=== PATIENT | female | born 1975 | race African-American/Black ===

== ENCOUNTER 2017-06-17 05:01 | Emergency (ER) | payer OTHER ==
[2017-06-17] MEDS ORDERED: METOPROLOL TARTRATE 5 MG/5 ML VIAL IVPUSH ONE (06:01)
[2017-06-17] MEDS ORDERED: ASPIRIN 81 MG CHEWABLE TABLETS PO ONE (06:01)
[2017-06-17 08:53] LABS: GLUCOSE,RANDOM 90 mg/dL (74-106)
[2017-06-17 08:54] LABS: ALBUMIN 3.6 g/dl (3.4-5.0); ANION GAP 7 (8-16); BILIRUBIN,TOTAL 0.4 mg/dL (0.2-1.0); CO2 25 mmol/L (21-32); CREATININE 0.7 mg/dL (0.55-1.02); MCH 28.4 pg (25.7-33.7); MCHC 32.1 g/dl (32.0-36.0); MEAN CELL VOLUME 88.5 fl (80-96); PLATELET COUNT 234 K/MM3 (134-434); RDW 15.1 % (11.6-15.6); TOT PROT 6.8 g/dl (6.4-8.2)
[2017-06-17 08:55] LABS: ALK PHOS 73 U/L (45-117); SGOT/AST 11 U/L (15-37); SGPT/ALT 30 U/L (12-78)
[2017-06-17 09:22] LABS: INR 1.07 (0.82-1.09); PROTHROMBIN TIME (PATIENT) 11.8 SEC (9.98-11.88)
[2017-06-17 09:25] LABS: ACTIVATED PTT 29.9 SECONDS (26.9-34.4)
--- NOTE | 2017-06-17 12:17 | PDOC ---
*Physical Exam - Physical Exam General Appearance: Yes: Nourished Neck: positive: Trachea midline Respiratory/Chest: positive: Lungs Clear, Normal Breath Sounds. negative: Chest Tender Cardiovascular: positive: Regular Rhythm, Regular Rate, S1, S2 Gastrointestinal/Abdominal: positive: Normal Bowel Sounds, Flat. negative: Tender Integumentary: positive: Normal Color, Dry, Warm ED Treatment Course - LABORATORY CBC & Chemistry Diagram: 06/17/17 05:57 06/17/17 05:57 - ADDITIONAL ORDERS Additional order review: Laboratory Results 06/17/17 06/17/17 06/17/17 06:30 05:57 05:57 INR 1.07 PTT (Actin FS) 29.9 Sodium 140 Potassium 4.0 Chloride 108 H Carbon Dioxide 25 Anion Gap 7 L BUN 10 D Creatinine 0.7 Creat Clearance w eGFR > 60 Random Glucose 90 Calcium 9.0 Total Bilirubin 0.4 D AST 11 L D ALT 30 D Alkaline Phosphatase 73 Total Protein 6.8 Albumin 3.6 Serum , Qual Negative 06/17/17 05:57 RBC 4.88 MCV 88.5 MCHC 32.1 RDW 15.1 D MPV 8.0 - Medications Given in the ED: ED Medications Discontinued Medications Generic Name Dose Route Start Last Admin Trade Name Freq PRN Reason Stop Dose Admin Aspirin 81 mg 06/17/17 06:01 06/17/17 10:02 Asa - PO 06/17/17 06:02 Not Given ONCE ONE Metoprolol Tartrate 5 mg 06/17/17 06:01 06/17/17 10:02 Lopressor Injection - IVPUSH 06/17/17 06:02 Not Given ONCE ONE Medical Decision Making - Medical Decision Making 06/17/17 12:14 assumed care of pt at 7 am. initially seen by dr lua during down time. ( paper chart) pt with h/o HTN here wtih /co chest pain awoke her from her sleep. pt states under significant amount of stress today states her birthday was 2 days ago and her son has been incarcerated for several days and she is worried about him. has had similar episode of cp in the past, no sob not pleuritic. since resolved. no n/v no sob no diaphoresis. has had a stress test over 2 yrs ago which was normal. was seeing a junction maker dr Deutsch, and pcp dr fabian Nuñez, but hasnt seen in a while. no h/o pe or dvt. no calf pain or tendernss. on exam awake alert lungs clear heart rrr no mrg. abd soft Nt nd ext wwp no edema no calf tenderness. plan: awaiting second troponin. will call pcp dr. fabian Nuñez, and pt should followup with cardiology for repeat outpt stress . given numbner for dr. peres. 06/17/17 13:19 rpt troponin negative 06/17/17 13:22 06/17/17 13:22 *DC/Admit/Observation/Transfer Diagnosis at time of Disposition: Chest pain - Discharge Dispostion Disposition: HOME Condition at time of disposition: Improved - Referrals Referrals: Jacinto Peres MD [Staff Physician] - Fabian Nuñez MD [Staff Physician] - - Patient Instructions Printed Discharge Instructions: DI for Chest Pain Additional Instructions: you should take baby aspirin daily you should follow up with dr. nuñez, call to schedule. you should also follow up with a junction maker. call to schedule with dr peres, or your prior junction maker dr deutsch. return for recurrent pain or any concerns
--- NOTE | 2017-06-17 12:18 | PDOC ---
History of Present Illness - General Stated Complaint: chest pain - History of Present Illness Initial Comments: 06/17/17 12:18 down time see paper chart Past History - Past Medical History Allergies/Adverse Reactions: Allergies Allergy/AdvReac Type Severity Reaction Status Date / Time codeine AdvReac Severe Vomiting Verified 05/03/15 07:18 Home Medications: Ambulatory Orders Aspirin [ASA -] 81 mg PO DAILY 11/27/12 Docosahexanoic Acid/Epa [Fish Oil Softgel] 1 each PO DAILY 01/14/13 Iron Bis-Gly/FA/C/B12/Ca/Succ [Iron-150 Tablet] 1 each PO DAILY 01/14/13 Ibuprofen [Motrin -] 600 mg PO Q6H PRN #18 tablet 10/22/13 Albuterol Sulfate Inhaler - [Ventolin HFA Inhaler -] 2 inh PO Q4H #1 inh Amlodipine Besylate [Norvasc -] 5 mg PO DAILY 05/02/15 Nebivolol HCl [Bystolic] 5 mg PO HS 05/02/15 Valsartan [Diovan] 40 mg PO DAILY 05/02/15 Oxycodone HCl/Acetaminophen [Percocet 5-325 mg Tablet -] 1 - 2 tab PO Q4H #20 tablet 05/03/15 Anemia: No Asthma: No Cancer: No Cardiac Disorders: No CVA: No COPD: No CHF: No Dementia: No Diabetes: No GI Disorders: Yes (GERD, hiatal hernia) Disorders: No HTN: Yes Hypercholesterolemia: No Liver Disease: No Seizures: No Thyroid Disease: No - Surgical History Abdominal Surgery: No Appendectomy: No Cardiac Surgery: No Cholecystectomy: No Lung Surgery: No Neurologic Surgery: No Orthopedic Surgery: No - Family Disease History Family Disease History: CA: Father (in his late 40s or early 50s, survived) - Psycho/Social/Smoking Cessation Hx Anxiety: No Suicidal Ideation: No Smoking Status: Yes Smoking History: Current some day smoker Number of Cigarettes Smoked Daily: 1 'Breaking Loose' booklet given: 01/14/13 Hx Alcohol Use: Yes (SOCIAL) Drug/Substance Use Hx: No Substance Use Type: Alcohol ED Treatment Course - LABORATORY CBC & Chemistry Diagram: 06/17/17 05:57 06/17/17 05:57 - ADDITIONAL ORDERS Additional order review: Laboratory Results 06/17/17 06/17/1717 06:30 05:57 05:57 INR 1.07 PTT (Actin FS) 29.9 Sodium 140 Potassium 4.0 Chloride 108 H Carbon Dioxide 25 Anion Gap 7 L BUN 10 D Creatinine 0.7 Creat Clearance w eGFR > 60 Random Glucose 90 Calcium 9.0 Total Bilirubin 0.4 D AST 11 L D ALT 30 D Alkaline Phosphatase 73 Total Protein 6.8 Albumin 3.6 Serum , Qual Negative 06/17/17 05:57 RBC 4.88 MCV 88.5 MCHC 32.1 RDW 15.1 D MPV 8.0 - Medications Given in the ED: ED Medications Discontinued Medications Generic Name Dose Route Start Last Admin Trade Name Freq PRN Reason Stop Dose Admin Aspirin 81 mg 06/17/17 06:01 06/17/17 10:02 Asa - PO 06/17/17 06:02 Not Given ONCE ONE Metoprolol Tartrate 5 mg 06/17/17 06:01 06/17/17 10:02 Lopressor Injection - IVPUSH 06/17/17 06:02 Not Given ONCE ONE *DC/Admit/Observation/Transfer Diagnosis at time of Disposition: Chest pain - Discharge Dispostion Disposition: HOME Condition at time of disposition: Improved Admit: No - Referrals Referrals: Jacinto Peres MD [Staff Physician] - Fabian Nuñez MD [Staff Physician] - - Patient Instructions Printed Discharge Instructions: DI for Chest Pain Additional Instructions: you should take baby aspirin daily you should follow up with dr. nuñez, call to schedule. you should also follow up with a rn hyperbaric. call to schedule with dr peres, or your prior rn hyperbaric dr cortez. return for recurrent pain or any concerns
[2017-06-17 12:45] VITALS: TEMP 98.3
[2017-06-17 13:12] LABS: CPK 43 IU/L (26-192)
[2017-06-17 13:13] LABS: TROPONIN I < 0.02 ng/ml (0.00-0.05)
[2017-06-17 13:25] LABS: CPK 55 IU/L (26-192); TROPONIN I < 0.02 ng/ml (0.00-0.05)
[2017-06-17 13:36] VITALS: BP 148/73; PULSE 70
--- NOTE | 2017-06-19 16:16 | EKG ---
Test Reason : Blood Pressure : / mmHG Vent. Rate : 072 BPM Atrial Rate : 072 BPM P-R Int : 148 ms QRS Dur : 090 ms QT Int : 406 ms P-R-T Axes : 057 007 013 degrees QTc Int : 444 ms NORMAL SINUS RHYTHM POSSIBLE LEFT ATRIAL ENLARGEMENT OTHERWISE NORMAL ECG Confirmed by MD EARLINE, RUDOLPH ([id number]) on 06/19/2017 4:16:20 PM Referred By: Confirmed By:RUDOLPH PATTEN MD
== END 2017-06-17 13:34 | disposition home or self-care (01) ==
LOC: JER 05:01
DX: R07.89 Other chest pain (principal); I10 Essential (primary) hypertension; K21.9 Gastro-esophageal reflux disease without esophagitis
CPT/HCPCS: 36415; 80053; 84484; 84703; 85027; 85610; 85730; 93005; 93010; 99281-25

== ENCOUNTER 2019-04-29 10:07 | Emergency (ER) | payer OTHER ==
[2019-04-29 10:13] VITALS: BP 140/83; PULSE 74; TEMP 98; BMI 24.0
--- NOTE | 2019-04-29 10:35 | PDOC ---
History of Present Illness - General Chief Complaint: Injury Stated Complaint: FALL Time Seen by Provider: 04/29/19 10:14 History Source: Patient Exam Limitations: No Limitations - History of Present Illness Initial Comments: 04/29/19 14:23 Was walking down stairs last night in her of slippers that were too large for her, slipped and fell onto her buttocks and hitting her right elbow and knocking her head. There was no LOC, but patient complaints of contusion to her right ear, her right elbow, and low back. Occurred: reports: yesterday Severity: reports: mild, moderate Pain Location: reports: back, head, upper extremity (right elbow ) Modifying Factors: improves with: None, cold therapy Loss of Consciousness: no loss of consciousness Associated Symptoms (Fall): denies symptoms, muscle spasms Past History - Travel Traveled outside of the country in the last 30 days: No Close contact w/someone who was outside of country & ill: No - Past Medical History Allergies/Adverse Reactions: Allergies Allergy/AdvReac Type Severity Reaction Status Date / Time codeine AdvReac Severe Vomiting Verified 04/29/19 10:09 Home Medications: Ambulatory Orders Aspirin [ASA -] 81 mg PO DAILY 11/27/12 Amlodipine Besylate [Norvasc -] 10 mg PO DAILY 05/02/15 Albuterol Sulfate Inhaler - [Ventolin HFA Inhaler -] 2 inh PO Q4H PRN 04/29/19 Losartan/Hydrochlorothiazide [Losartan-Hctz 50-12.5 mg Tab] 1 each PO DAILY 03/13 Metoprolol Succinate [Toprol Xl -] 25 mg PO DAILY 04/29/19 Naproxen [Naprosyn -] 500 mg PO BID #30 tablet 04/29/19 Anemia: No Asthma: No Cancer: No Cardiac Disorders: No CVA: No COPD: No CHF: No Dementia: No Diabetes: No GI Disorders: Yes (GERD, hiatal hernia) Disorders: No HTN: Yes Hypercholesterolemia: No Liver Disease: No Seizures: No Thyroid Disease: No - Surgical History Abdominal Surgery: No Appendectomy: No Cardiac Surgery: No Cholecystectomy: No Lung Surgery: No Neurologic Surgery: No Orthopedic Surgery: No - Family Disease History Family Disease History: CA: Father (in his late 40s or early 50s, survived) - Suicide/Smoking/Psychosocial Hx Smoking Status: Yes Smoking History: Unknown if ever smoked Number of Cigarettes Smoked Daily: 1 'Breaking Loose' booklet given: 01/14/13 Hx Alcohol Use: Yes (SOCIAL) Drug/Substance Use Hx: No Substance Use Type: Alcohol Review of Systems - Review of Systems Able to Perform ROS?: Yes Is the patient limited Divehi proficient: Yes Constitutional: Yes: Symptoms Reported, See HPI. No: Fever, Malaise HEENTM: Yes: See HPI. No: Symptoms Reported, Eye Pain, Blurred Vision Respiratory: Yes: See HPI. No: Symptoms reported Musculoskeletal: Yes: Symptoms Reported, See HPI, Back Pain, Neck Pain (muscle pain - mild spasm ) Integumentary: Yes: Symptoms Reported, See HPI, Bruising (with abrasions to eigth elbow. ) Neurological: Yes: See HPI. No: Symptoms reported, Headache, Numbness, Paresthesia All Other Systems: Reviewed and Negative *Physical Exam - Vital Signs Last Vital Signs Temp Pulse Resp BP Pulse Ox 98 F 74 18 140/83 99 04/29/19 10:12 04/29/19 10:12 04/29/19 10:12 04/29/19 10:12 04/29/19 10:12 - Physical Exam General Appearance: Yes: Nourished, Appropriately Dressed, Apparent Distress, Mild Distress HEENT: positive: LUCERO, Normal ENT Inspection, TMs Normal (no hemotympanum, no drainage from nose or ears, no evidence of skull fracture), Pharynx Normal, Other (tenderness over the right pinna, no bruising, contusions, crepitus or step-offs to mastoid area. No bleeding in canal and no hemotympanum). negative : Rhinorrhea Neck: positive: Tender (mild tenderness to paravertebral spinous musculature, no crepitus or step-offs along spinous processes or paravertebral spine. Full range of motion.), Supple Respiratory/Chest: positive: Lungs Clear, Normal Breath Sounds Gastrointestinal/Abdominal: positive: Soft. negative: Tender Musculoskeletal: positive: Normal Inspection, Muscle Spasm (mild tenderness and spasm noted to the lower trapezius and upper lumbar, no bruising noted along the back, no flank tenderness, able to bend waist from side to side without difficulty). negative: CVA Tenderness, Vertebral Tenderness Extremity: positive: Normal Capillary Refill, Normal Range of Motion Integumentary: positive: Normal Color, Dry, Warm, Other (superficial abrasion along the right elbow and olecranon and along the ulnar aspect of forearm. 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 We' ll treat for contusions and muscle strain. *DC/Admit/Observation/Transfer Diagnosis at time of Disposition: Multiple contusions Fall Qualifiers: Encounter type: initial encounter Qualified Code(s): W19.XXXA - Unspecified fall, initial encounter - Discharge Dispostion Disposition: HOME Condition at time of disposition: Stable Decision to Admit order: No - Prescriptions Prescriptions: Naproxen [Naprosyn -] 500 mg PO BID #30 tablet - Referrals Referrals: Fabian Nuñez MD [Primary Care Provider] - - Patient Instructions Printed Discharge Instructions: DI for Contusion Additional Instructions: Rest, ice to area on and off for 15 minutes 4-6 times a day Avoid heavy lifting or exercise until pain and swelling is resolved or until further directed Keep area highly elevated to reduce swelling Use splints/Dennis wrap as directed Followup with orthopedist in one to 2 days if not improving, if significantly improved may wait one week for followup with orthopedist May use ibuprofen every 6 hours as needed for pain - Post Discharge Activity Forms/Work/School Notes: Back to Work
== END 2019-04-29 10:51 | disposition home or self-care (01) ==
LOC: JERFT 10:07
DX: S50.01XA Contusion of right elbow, initial encounter (principal); S30.0XXA Contusion of lower back and pelvis, initial encounter; S00.83XA Contusion of other part of head, initial encounter; W10.8XXA Fall (on) (from) other stairs and steps, initial encounter; Y93.89 Activity, other specified; Y92.038 Other place in apartment as the place of occurrence of the external cause; Y99.8 Other external cause status; I10 Essential (primary) hypertension; K21.9 Gastro-esophageal reflux disease without esophagitis
CPT/HCPCS: 99281-25

== ENCOUNTER 2019-08-22 10:39 | Emergency (ER) | payer OTHER ==
[2019-08-22 10:53] VITALS: TEMP 98.2; BMI 23.6
--- NOTE | 2019-08-22 11:22 | PDOC ---
History of Present Illness - General Chief Complaint: Pain Stated Complaint: VAGNIAL BLEED/ DIZZNESS Time Seen by Provider: 08/22/19 11:03 - History of Present Illness Initial Comments: 08/22/19 11:43 Pt is a 44 y/o F with a significant past medical history of HTN and anxiety who presents to our Emergency Department due to vaginal bleeding and abdominal pain. Pt states that pain has been ongoing for 8 months and has increased in severity in this time period. States that pain comes and goes and described it as a " punching sensation." Pt first noticed spotting 8 months ago and has been intermittent ever since. Pt recently visited her OBGYN 3 weeks ago who diagnosed a urinary tract infection and prescribed an antibiotic. Pt also underwent a transvaginal ultrasound that showed a cyst on one of her ovaries. Endorses lightheadedness and some nausea. Denies chest pain, shortness of breath , vomiting, dysuria. 08/22/19 12:03 08/22/19 12:16 Past History - Past Medical History Allergies/Adverse Reactions: Allergies Allergy/AdvReac Type Severity Reaction Status Date / Time codeine AdvReac Severe Vomiting Verified 08/22/19 10:47 Home Medications: Ambulatory Orders Aspirin [ASA -] 81 mg PO DAILY 11/27/12 Amlodipine Besylate [Norvasc -] 10 mg PO DAILY 05/02/15 Albuterol Sulfate Inhaler - [Ventolin HFA Inhaler -] 2 inh PO Q4H PRN 04/29/19 Losartan/Hydrochlorothiazide [Losartan-Hctz 50-12.5 mg Tab] 1 each PO DAILY 03/13 Metoprolol Succinate [Toprol Xl -] 25 mg PO DAILY 04/29/19 Naproxen [Naprosyn -] 500 mg PO BID #30 tablet 04/29/19 Fluconazole 100 mg PO UTDICT 12 Days #4 tablet 08/22/19 Anemia: No Asthma: No Cancer: No Cardiac Disorders: No CVA: No COPD: No CHF: No Dementia: No Diabetes: No GI Disorders: Yes (GERD, hiatal hernia) Disorders: No HTN: Yes Hypercholesterolemia: No Liver Disease: No Seizures: No Thyroid Disease: No - Surgical History Abdominal Surgery: No Appendectomy: No Cardiac Surgery: No Cholecystectomy: No Lung Surgery: No Neurologic Surgery: No Orthopedic Surgery: No - Psycho Social/Smoking Cessation Hx Smoking Status: Yes Smoking History: Never smoked Number of Cigarettes Smoked Daily: 1 'Breaking Loose' booklet given: 01/14/13 Hx Alcohol Use: No Drug/Substance Use Hx: No Substance Use Type: Alcohol *Physical Exam - Vital Signs Last Vital Signs Temp Pulse Resp BP Pulse Ox 98.2 F 73 18 168/77 99 08/22/19 10:50 08/22/19 10:50 08/22/19 10:50 08/22/19 10:50 08/22/19 10:50 - Physical Exam General Appearance: Yes: Mild Distress HEENT: positive: EOMI. negative: Scleral Icterus (R), Scleral Icterus (L) Respiratory/Chest: positive: Lungs Clear, Normal Breath Sounds Cardiovascular: positive: Regular Rhythm, Regular Rate, S1, S2 Female Pelvic Exam: positive: other (Exam chaperoned by Diana Davenport RN. Thick whitish discharge appreciated around cervix. Endorses extreme pain during vaginal exam. ) Gastrointestinal/Abdominal: positive: Tender, Soft. 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 08/22/19 13:19 Speculum exam performed by keno writer / runner. Ethyl Blender at bedside- Diana Davenport RN. Cultures collected and sent to lab Transvaginal U/S read pending 08/22/19 14:34 Urinalysis reveals 1 + Hematuria. No blood visualized on speculum exam CTAP done--> right kidney stone non-obstructing. No evidence of hydronephrosis. TVUS--> multiple follicles/cysts on R ovary. Post-Hysterectomy. Pt discharged with Urology and Nephrology Referrals. Will follow up with OBGYN-Dr Fowler this week. 08/22/19 18:26 Discharge - Discharge Information Problems reviewed: Yes Clinical Impression/Diagnosis: Vaginal yeast infection Condition: Stable Disposition: HOME - Additional Discharge Information Prescriptions: Fluconazole 100 mg PO UTDICT 12 Days #4 tablet - Follow up/Referral Referrals: Jose Fan MD [Staff Physician] - Fabian Nuñez MD [Primary Care Provider] - Jovanny Mcmahan MD [Staff Physician] - - Patient Discharge Instructions Patient Printed Discharge Instructions: DI for Kidney Stones, DI for Vaginal Yeast Infection Additional Instructions: Please use your fluconazole every three days as directed. Please follow up with urology as indicated on this form. Pleas return to he ED if you have new or worsening symptoms despite medication. - Post Discharge Activity Work/Back to School Note: Back to Work
[2019-08-22] MEDS ORDERED: KETOROLAC TROMETHAMINE 15 MG/ML VIAL IVPUSH ONE (11:41)
[2019-08-22] MEDS ORDERED: SODIUM CHLORIDE 1,000 ML IV STA (11:41)
[2019-08-22] MEDS ORDERED: KETOROLAC TROMETHAMINE 15 MG/ML VIAL ONE (12:20)
[2019-08-22 12:31] LABS: BASO % 0.6 % (0-2.0); EOS % 2.1 % (0-4.5); HEMATOCRIT 45.8 % (32.4-45.2); LYMPH % 22.1 % (8-40); MCH 29.3 pg (25.7-33.7); MCHC 32.8 g/dl (32.0-36.0); MEAN CELL VOLUME 89.3 fl (80-96); MEAN PLT VOLUME 8.1 fl (7.5-11.1); MONO % 6.2 % (3.8-10.2); PLATELET COUNT 275 K/MM3 (134-434); RBC 5.13 M/mm3 (3.60-5.2); RDW 14.1 % (11.6-15.6); WHITE BLOOD COUNT 5.9 K/mm3 (4.0-10.0)
[2019-08-22 12:41] LABS: INR 1.04 (0.83-1.09); PROTHROMBIN TIME (PATIENT) 12.3 SEC (9.7-13.0)
--- NOTE | 2019-08-22 12:51 | PDOC ---
Documentation entered by Armida Koroma SCRIBE, acting as scribe for Jeannette Velásquez DO. Jeannette Velásquez DO: This documentation has been prepared by the Franci olivas Sammi, SCRIBE, under my direction and personally reviewed by me in its entirety. I confirm that the documentation accurately reflects all work, treatment, procedures, and medical decision making performed by me. Attending Attestation - Resident Resident Name: Nick Nuñez - ED Attending Attestation I have performed the following: I have examined & evaluated the patient, The case was reviewed & discussed with the resident, I agree w/resident's findings & plan, Exceptions are as noted - HPI HPI: 08/22/19 12:02 The patient is a 44 year old female who presents to the emergency department for evaluation several months of intermittent vaginal bleeding and associated abdominal pain. The patient was evaluated by her [facility] a couple of weeks ago where she was treated for a UTI PMH: HTN, anxiety - Physicial Exam PE: 08/22/19 12:47 Gen: aaox3, tearful heart: +s1s2 reg lungs: cta b/l abd: soft, nt/nd +bs, no cva ttp ext: no c/c/e - Medical Decision Making 08/22/19 12:48 I, Dr. Jeannette Velásquez DO, attest that this document has been prepared under my direction and personally reviewed by me in its entirety. I further attest, that it accurately reflects all work, treatment, procedures and medical decision -making performed by me. a/p: 44yo female with inermittent abd cramping/pain and spotting -hx of hyster and salpingectomy in the past -has seen [facility] - Dr. Ortiz twice in past few months -intermittent cramping -pt states treated for uti and yeast infection 3 weeks ago -no pain at this time -will send labs, tvus (had ovarian cyst on prior eval) and ua -will give toradol, ivf hydration -will monitor and reassess 08/22/19 12:51 hgb stable 08/22/19 13:53 pt with yeast infection on exam small cysts on ct ua pending 08/22/19 14:30 pt with blood in urine, no blood on pelvic exam will send for stone study - given abd pain, bleeding 08/22/19 16:18 ct pending obiee consultant appt on Sep [address] Montoya 08/22/19 16:29 no acute obstructive nephrolithiasis stable for dc to home will give urology follow up
[2019-08-22 13:23] LABS: ALBUMIN 3.8 g/dl (3.4-5.0); BILIRUBIN,TOTAL 0.4 mg/dL (0.2-1); BLOOD UREA NITROGEN 8.4 mg/dL (7-18); CALCIUM 9.2 mg/dL (8.5-10.1); CREATININE 0.8 mg/dL (0.55-1.3); POTASSIUM 4.6 mmol/L (3.5-5.1); TOT PROT 7.1 g/dl (6.4-8.2)
[2019-08-22] MEDS ORDERED: FLUCONAZOLE 50 MG TABLET PO ONE (13:56)
[2019-08-22] MEDS ORDERED: FLUCONAZOLE 100 MG TABLET (UD) ONE (14:02)
[2019-08-22 14:27] LABS: EPI CELLS 8.6 /HPF (0-5/HPF); HYALINE CASTS 15 /lpf (0-8); PH,URINE 5.5 (5.0-8.0); URINE APPEARANCE CLEAR; URINE BACTERIA 509.7 /hpf (NEGATIVE); URINE BILIRUBIN NEGATIVE (NEGATIVE); URINE COLOR YELLOW; URINE GLUCOSE (UA) NEGATIVE (NEGATIVE); URINE KETONE NEGATIVE (NEGATIVE); URINE LEUK ESTERASE NEGATIVE (NEGATIVE); URINE NITRITE NEGATIVE (NEGATIVE); URINE PROTEIN NEGATIVE (NEGATIVE); URINE RBC 11 /hpf (0-4); URINE UROBILINOGEN 0.2 mg/dL (0.2-1.0)
[2019-08-22 16:55] VITALS: BP 128/64; PULSE 84
[2019-08-22 21:16] LABS: URINE WBC 14.6 /hpf (0-5)
== END 2019-08-22 16:55 | disposition home or self-care (01) ==
LOC: JER 10:39
PROC: 3E0337Z Introduction of Electrolytic and Water Balance Substance into Peripheral Vein, Percutaneous Approach (ICD-10-PCS; principal; 2019-08-22)
PROC: 3E0333Z Introduction of Anti-inflammatory into Peripheral Vein, Percutaneous Approach (ICD-10-PCS; 2019-08-22)
DX: B37.3 Candidiasis of vulva and vagina (principal); N20.0 Calculus of kidney; N83.201 Unspecified ovarian cyst, right side; I10 Essential (primary) hypertension; K21.9 Gastro-esophageal reflux disease without esophagitis; Z88.6 Allergy status to analgesic agent
CPT/HCPCS: 36415; 74176-TC; 76830-TC; 80053; 81003; 85025; 85610; 86850; 86900; 86901; 87070; 87086; 87205; 99282-25; J7030

== ENCOUNTER 2021-02-02 23:47 | Emergency (ER) | payer OTHER ==
[2021-02-03 00:02] VITALS: BP 137/96; PULSE 90; TEMP 98.6; BMI 23.1
[2021-02-03] MEDS ORDERED: ACETAMINOPHEN 500 MG TABLET (FP) PO ONE (00:34)
[2021-02-03] MEDS ORDERED: diazePAM 2 MG TABLET PO ONE (00:34)
[2021-02-03] MEDS ORDERED: LIDOCAINE 5% TOPICAL PATCH TP ONE (00:35)
[2021-02-03] MEDS ORDERED: ACETAMINOPHEN 325 MG TABLET (FP) ONE (00:40)
[2021-02-03] MEDS ORDERED: LIDOCAINE 5% TOPICAL PATCH ONE (00:40)
[2021-02-03] MEDS ORDERED: diazePAM 5 MG TABLET ONE (00:40)
[2021-02-03] MEDS ORDERED: LIDOCAINE PATCH REMOVAL MC ONE (13:00)
== END 2021-02-03 01:34 | disposition home or self-care (01) ==
LOC: JER 23:47
DX: M54.2 Cervicalgia (principal); M62.838 Other muscle spasm
CPT/HCPCS: 99283-25

== ENCOUNTER 2021-02-03 17:14 | Emergency (ER) | payer OTHER ==
[2021-02-03 17:38] VITALS: BP 135/94; PULSE 83; TEMP 98.6; BMI 22.4
[2021-02-03] MEDS ORDERED: ACETAMINOPHEN 500 MG TABLET (FP) PO ONE (18:03)
[2021-02-03] MEDS ORDERED: diazePAM 5 MG TABLET PO ONE (18:03)
[2021-02-03] MEDS ORDERED: KETOROLAC TROMETHAMINE 30 MG/1 ML VIAL IM ONE (18:03)
[2021-02-03] MEDS ORDERED: KETOROLAC TROMETHAMINE 30 MG/1 ML VIAL ONE (18:12)
[2021-02-03] MEDS ORDERED: ACETAMINOPHEN 500 MG TABLET (FP) ONE (18:12)
[2021-02-03] MEDS ORDERED: diazePAM 5 MG TABLET ONE (18:12)
== END 2021-02-03 18:34 | disposition home or self-care (01) ==
LOC: JERFT 17:14
PROC: 3E0233Z Introduction of Anti-inflammatory into Muscle, Percutaneous Approach (ICD-10-PCS; principal; 2021-02-03)
DX: M62.838 Other muscle spasm (principal)
CPT/HCPCS: 99284-25

== ENCOUNTER 2021-07-05 04:46 | Day surgery (SDC) | payer OTHER ==
[2021-07-03 17:00] VITALS: BMI 24.2
[2021-07-05 09:57] VITALS: TEMP 97.4
[2021-07-05 10:48] VITALS: BP 151/93; PULSE 78
== END 2021-07-05 10:56 | disposition home or self-care (01) ==
LOC: JASU-ENDO 04:46
PROVIDERS: ATTEND Internal Medicine Gastroenterology
PROC: 0DBK8ZX Excision of Ascending Colon, Via Natural or Artificial Opening Endoscopic, Diagnostic (ICD-10-PCS; 2021-07-05)
PROC: 0DBM8ZX Excision of Descending Colon, Via Natural or Artificial Opening Endoscopic, Diagnostic (ICD-10-PCS; 2021-07-05)
PROC: 0DB98ZX Excision of Duodenum, Via Natural or Artificial Opening Endoscopic, Diagnostic (ICD-10-PCS; 2021-07-05)
PROC: 0DB68ZX Excision of Stomach, Via Natural or Artificial Opening Endoscopic, Diagnostic (ICD-10-PCS; 2021-07-05)
PROC: 0DB28ZX Excision of Middle Esophagus, Via Natural or Artificial Opening Endoscopic, Diagnostic (ICD-10-PCS; 2021-07-05)
PROC: 0DB38ZX Excision of Lower Esophagus, Via Natural or Artificial Opening Endoscopic, Diagnostic (ICD-10-PCS; 2021-07-05)
PROC: 0DBN8ZX Excision of Sigmoid Colon, Via Natural or Artificial Opening Endoscopic, Diagnostic (ICD-10-PCS; principal; 2021-07-05 09:00)
DX: Z12.11 Encounter for screening for malignant neoplasm of colon (principal); D12.2 Benign neoplasm of ascending colon; D12.4 Benign neoplasm of descending colon; D12.5 Benign neoplasm of sigmoid colon; K21.9 Gastro-esophageal reflux disease without esophagitis; K44.9 Diaphragmatic hernia without obstruction or gangrene; K29.00 Acute gastritis without bleeding; Z86.010 Personal history of colon polyps; Z80.0 Family history of malignant neoplasm of digestive organs

== ENCOUNTER → 2022-02-04 | Emergency (ER) | payer OTHER ==
[~2022-02-04] MED LIST: ACETAMINOPHEN 325 MG TABLET (FP) ONE; ACETAMINOPHEN 500 MG TABLET (FP) PO ONE; METOCLOPRAMIDE HCL INJECTION 10 MG/2 ML VIAL IVPUSH ONE; METOCLOPRAMIDE HCL INJECTION 10 MG/2 ML VIAL ONE; SODIUM CHLORIDE 0.9% 1000 ML INFUS.BAG IV ONE
[2022-02-05 00:29] VITALS: BP 112/74; PULSE 81; TEMP 98; BMI 23.5
[2022-02-05 01:25] LABS: BASO % 0.6 % (0-2.0); EOS % 2.8 % (0-4.5); HEMATOCRIT 40.3 % (32.4-45.2); HEMOGLOBIN 13.6 GM/dL (10.7-15.3); LYMPH % 20.4 % (8-40); MCH 29.3 pg (25.7-33.7); MCHC 33.7 g/dl (32.0-36.0); MEAN PLT VOLUME 7.4 fl (7.5-11.1); MONO % 8.1 % (3.8-10.2); NEUT % 68.1 % (42.8-82.8); PLATELET COUNT 233 10^3/uL (134-434); RBC 4.63 M/mm3 (3.60-5.2); RDW 15.1 % (11.6-15.6); WHITE BLOOD COUNT 9.2 K/mm3 (4.0-10.0)
[2022-02-05 01:48] LABS: ALBUMIN 3.5 g/dl (3.4-5.0); CALCIUM 8.9 mg/dL (8.5-10.1)
[2022-02-05 01:52] LABS: CREATININE 0.7 mg/dL (0.55-1.3)
[2022-02-05 01:53] LABS: BILIRUBIN,TOTAL 0.2 mg/dL (0.2-1)
== END | disposition left against medical advice (07) ==
LOC: JER 23:55
PROC: 3E033GC Introduction of Other Therapeutic Substance into Peripheral Vein, Percutaneous Approach (ICD-10-PCS; principal; 2022-02-04)
DX: R42 Dizziness and giddiness (principal)
CPT/HCPCS: 36415; 71045-TC-FY; 80053; 84484; 85025; 93005; 93010; 96374; 99285-25

== ENCOUNTER 2022-07-29 12:43 | Emergency (ER) | payer BC, OTHER ==
[2022-07-29 13:03] VITALS: RESP 20; TEMP 98; BMI 23.1
[2022-07-29] MEDS ORDERED: MAG HYDROX/AL HYDROX/SIMETH 30 ML UNIT-DOSE CUP PO ONE (13:44)
[2022-07-29] MEDS ORDERED: FAMOTIDINE 20 MG/50 ML IVPB 20 MG/50 ML MG IVPB ONE ×2 (13:44→14:05)
[2022-07-29] MEDS ORDERED: ACETAMINOPHEN 1000 MG/100 ML BAG IVPB ONE (13:45)
[2022-07-29] MEDS ORDERED: ACETAMINOPHEN INJECTION 100 ML IVPB ONE (14:05)
[2022-07-29] MEDS ORDERED: MAG HYDROX/AL HYDROX/SIMETH 30 ML UNIT-DOSE CUP ONE (14:05)
[2022-07-29 15:11] LABS: BASO % 0.3 % (0-2.0); EOS % 0.4 % (0-4.5); HEMATOCRIT 44.5 % (32.4-45.2); HEMOGLOBIN 14.6 GM/dL (10.7-15.3); LYMPH % 12.4 % (8-40); MCH 28.9 pg (25.7-33.7); MCHC 32.8 g/dl (32.0-36.0); MEAN CELL VOLUME 88.1 fl (80-96); MEAN PLT VOLUME 8.2 fl (7.5-11.1); MONO % 5.4 % (3.8-10.2); NEUT % 81.5 % (42.8-82.8); PLATELET COUNT 265 10^3/uL (134-434); RBC 5.05 M/mm3 (3.60-5.2); RDW 14.9 % (11.6-15.6); WHITE BLOOD COUNT 10.6 K/mm3 (4.0-10.0)
[2022-07-29 15:18] LABS: INR 1.1 (0.83-1.09); PROTHROMBIN TIME (PATIENT) 12.7 SEC (9.7-13.0)
[2022-07-29 15:21] LABS: ACTIVATED PTT 31.4 SECONDS (25.2-36.5)
[2022-07-29 15:35] LABS: CHLORIDE 104 mmol/L (98-107); SODIUM 137 mmol/L (136-145)
[2022-07-29 15:36] LABS: CALCIUM 9.7 mg/dL (8.5-10.1)
[2022-07-29 15:37] LABS: ALBUMIN 4.2 g/dl (3.4-5.0); ANION GAP 8 MMOL/L (8-16); BLOOD UREA NITROGEN 8.4 mg/dL (7-18); CO2 26 mmol/L (21-32); GLUCOSE,RANDOM 88 mg/dL (74-106)
[2022-07-29 15:40] LABS: CREATININE 0.6 mg/dL (0.55-1.3); SGOT/AST 12 U/L (15-37); SGPT/ALT 27 U/L (13-61)
[2022-07-29 15:42] LABS: BILIRUBIN,TOTAL 0.5 mg/dL (0.2-1); TOT PROT 7.9 g/dl (6.4-8.2)
[2022-07-29 15:43] LABS: ALK PHOS 84 U/L (45-117)
[2022-07-29 16:09] VITALS: BP 132/81; PULSE 75
== END 2022-07-29 16:10 | disposition home or self-care (01) ==
LOC: JER 12:43 → SUPCPDRO 12:43 → JER 16:10
PROC: 3E033GC Introduction of Other Therapeutic Substance into Peripheral Vein, Percutaneous Approach (ICD-10-PCS; principal; 2022-07-29)
DX: R51.9 Headache, unspecified (principal); R07.9 Chest pain, unspecified; I10 Essential (primary) hypertension
CPT/HCPCS: 36415; 71046-TC-FY; 80053; 84484; 85025; 85610; 85730; 93005; 93010; 99285-25; C9803-CS; U0003; U0005

== ENCOUNTER 2023-05-06 10:32 | Emergency (ER) | payer OTHER ==
[2023-05-06 10:44] VITALS: TEMP 97.8; BMI 23.1
[2023-05-06] MEDS ORDERED: ACETAMINOPHEN 1000 MG/100 ML BAG IVPB ONE (11:18)
[2023-05-06] MEDS ORDERED: SODIUM CHLORIDE 1,000 ML IV STA (11:18)
[2023-05-06] MEDS ORDERED: ACETAMINOPHEN INJECTION 100 ML IVPB ONE (11:38)
[2023-05-06 12:00] LABS: BASO % 0.6 % (0-2.0); EOS % 1.3 % (0-4.5); HEMATOCRIT 38.4 % (32.4-45.2); HEMOGLOBIN 13.1 GM/dL (10.7-15.3); LYMPH % 23.9 % (8-40); MCH 29.1 pg (25.7-33.7); MEAN CELL VOLUME 85.4 fl (80-96); MEAN PLT VOLUME 7.6 fl (7.5-11.1); MONO % 7.2 % (3.8-10.2); PLATELET COUNT 280 10^3/uL (134-434); RBC 4.49 M/mm3 (3.60-5.2); RDW 14.1 % (11.6-15.6); WHITE BLOOD COUNT 8.1 K/mm3 (4.0-10.0)
[2023-05-06 12:14] LABS: POTASSIUM 3.4 mmol/L (3.5-5.1)
[2023-05-06 12:16] LABS: CALCIUM 9.4 mg/dL (8.5-10.1)
[2023-05-06 12:17] LABS: ALBUMIN 3.7 g/dl (3.4-5.0); BLOOD UREA NITROGEN 16.7 mg/dL (7-18)
[2023-05-06 12:21] LABS: BILIRUBIN,TOTAL 0.3 mg/dL (0.2-1); CREATININE 0.8 mg/dL (0.55-1.3)
[2023-05-06 14:18] VITALS: BP 125/90; PULSE 73; RESP 18
== END 2023-05-06 14:18 | disposition home or self-care (01) ==
LOC: JER 10:32
PROC: 3E033NZ Introduction of Analgesics, Hypnotics, Sedatives into Peripheral Vein, Percutaneous Approach (ICD-10-PCS; principal; 2023-05-06)
PROC: 3E0337Z Introduction of Electrolytic and Water Balance Substance into Peripheral Vein, Percutaneous Approach (ICD-10-PCS; 2023-05-06)
DX: R07.9 Chest pain, unspecified (principal); R00.2 Palpitations; R51.9 Headache, unspecified
CPT/HCPCS: 36415; 70450-TC; 80053; 84484; 85025; 93005; 93010; 99285-25